=== PATIENT | male | born 1945 | race Caucasian/White ===

== ENCOUNTER 2019-06-07 12:06 | Outpatient (CLI) | payer MEDICARE, OTHER, SELFPAY ==
--- NOTE | 2019-06-07 13:26 | PFTS_ITS ---
Date of Study:06/07/2019 Date of Dictation: MECHANICS: Forced vital capacity (FVC) is normal. Forced expiratory volume in one second (FEV1) is normal. FEV1/FVC is normal. FLOW VOLUME LOOP: Normal. LUNG VOLUMES: Total lung capacity (TLC) is normal. Residual volume (RV) is normal. DIFFUSING CAPACITY FOR CARBON MONOXIDE: Normal. INTERPRETATION: The pulmonary function tests are normal. Normal lung volumes. Gas exchange (DLCO) is normal. MTDD
== END 2019-06-07 12:07 | disposition home or self-care (01) ==
LOC: RT 12:11
PROVIDERS: Family Provider Family Medicine; PCP Family Medicine; Visit Provider Family Medicine
DX: R05 Cough (principal)
CPT/HCPCS: 94010; 94726; 94729

== ENCOUNTER → 2019-12-31 14:31 | Outpatient (BNVA) | payer SELFPAY | PROVIDERS: Family Provider Family Medicine; PCP Family Medicine; Visit Provider Specialist | DX: Z11.59 Encounter for screening for other viral diseases (principal) | CPT/HCPCS: 87635 ==

== ENCOUNTER 2020-01-04 13:52 | Outpatient (CLI) | payer OTHER, SELFPAY ==
--- NOTE | 2020-01-04 14:37 | PFTS_ITS ---
Date of Study:01/04/20 Date of Dictation: MECHANICS: Forced vital capacity (FVC) is normal. Forced expiratory volume in one second (FEV1) is normal. FEV1/FVC is normal. FLOW VOLUME LOOP: Normal. LUNG VOLUMES: Not measured DIFFUSING CAPACITY FOR CARBON MONOXIDE: Not measured Methacholine challenge test: Reduction of FEV1 by 20% was not obtained with increasing concentration of the methacholine. INTERPRETATION: The spirometry is normal. The methacholine challenge test was negative. MTDD
== END 2020-01-04 13:53 | disposition home or self-care (01) ==
LOC: RT 13:53
PROVIDERS: PCP Family Medicine; Visit Provider Specialist
DX: J30.9 Allergic rhinitis, unspecified (principal)
CPT/HCPCS: 94070; J7611; J7674

== ENCOUNTER 2020-10-02 13:41 | Outpatient (CLI) | payer OTHER, SELFPAY ==
--- NOTE | 2020-10-02 15:22 | N.ONRAD NP_ITS ---
Radiation Oncology Consultation Patient Name: David Gottlieb Date of : 1945 Date of Service: 10/02/2020 Attending Physician: Trace Tejada M.D. David Gottlieb was seen in consultation this afternoon at the [facility] for consideration of prostate radiotherapy as provision for the management of prostate cancer. He initially was initially evaluated in 2019 for rectal pain. A transrectal ultrasound-guided biopsy the prostate gland performed on August 05, 2018 diagnosed an adenocarcinoma of the prostate with a [place] score of 4+3 (grade group 3) involving 25% of the left lateral base, [place] score of 3+4 involving 40% of the right lateral mid gland, and a [place] score of 3+3 involving the left medial mid gland, left medial apex, right medial mid gland, the LXTZa, and the LMPZpl with corresponding carcinoma identified in 15%, 65%, 15%, 40%, and 10%, respectively in the submitted cores (pathology report was requested and personally reviewed). His initial PSA was 3.25 ng/mL. A Prolaris Test was obtained with a score of 2.6 (indicating a 4.2% disease specific mortality at 10 years). He elected surveillance, nevertheless, on account of urinary frequency and pelvic discomfort he has reconsidered therapeutic measures. His most recent PSA obtained in July was 5.9 ng/mL. He was evaluated for prostate radiotherapy. I discussed the patient's AJCC clinical stage IIC (T1cN0) unfavorable intermediate risk prostate cancer. In accordance to NCCN Guidelines (which do not incorporate genetic testing), surgery, external beam radiotherapy with androgen deprivation therapy (6 months), or radiotherapy with brachytherapy (as per the ASCENDE-RT Trial) are treatment options. I would endorse continued active surveillance inconsequence of the Polaris test score. The patient has verbalized understanding would like to proceed as recommended. Signed by: Dr. Trace Tejada 10/02/2020 3:20:14 PM
== END 2020-10-02 13:42 | disposition home or self-care (01) ==
PROVIDERS: PCP Family Medicine; Referring Provider Internal Medicine; Visit Provider Radiology Radiation Oncology
DX: C61 Malignant neoplasm of prostate (principal); K62.89 Other specified diseases of anus and rectum; Z79.899 Other long term (current) drug therapy
CPT/HCPCS: 99205

== ENCOUNTER → 2021-03-27 08:39 | Outpatient (BNVA) | payer OTHER, SELFPAY | PROVIDERS: PCP Family Medicine; Visit Provider Urology | DX: C61 Malignant neoplasm of prostate (principal) | CPT/HCPCS: 81003 ==

== ENCOUNTER 2021-04-29 14:30 | Emergency (ER) | payer OTHER, MEDICARE, SELFPAY ==
[2021-04-29 14:37] VITALS: BP 151/73; PULSE 94; RESP 20; TEMP 36.9; O2SAT 93; BMI 27.8
--- NOTE | 2021-04-29 15:04 | ED_ITS ---
HPI - COVID General: Chief Complaint: COVID symptoms Stated Complaint: covid positive would like antibotics Time Seen by Provider: 04/29/21 14:54 Triage information: Has fever, cough or shortness of breath . Exposure to COVID + person last 14 days History of Present Illness: 76-year-old gentleman presents with a cough. States he was diagnosed with Covid on the . Denies any chest pain or shortness of breath however. Denies any lower extremity pain or swelling. Saturating well on room air in triage. COVID Results: SARS-CoV-2 RNA (RT-PCR) Not detected (NOT DETECTED) 12/31/19 14:31 12/31/19 Review of Systems Narrative: - CONSTITUTIONAL: Denies weight loss, fever and chills. - HEENT: Denies changes in vision and hearing. - RESPIRATORY: As above - CV: Denies palpitations and CP. - GI: Denies abdominal pain, nausea, vomiting and diarrhea. - : Denies dysuria and urinary frequency. - MSK: Denies myalgia and joint pain. - SKIN: Denies rash and pruritus. - NEUROLOGICAL: Denies headache, weakness, numbness and syncope. - PSYCHIATRIC: Denies suicidal ideation PFSH ED PFSH: Medical History Prostate cancer Family History Father , AT AGE 91 Dementia Cancer prostate Mother , AT AGE 89 CHF (congestive heart failure) Social History Smoking and tobacco status: former smoker Alcohol intake: never Marital status: Current occupational status: retired Current occupation: floor coverings installer History of recent travel: No Physical Exam Narrative: EXAM NARRATIVE: - GENERAL: Alert and oriented x 3. No acute distress. Well-nourished. - EYES: EOMI. Anicteric. - HENT: Atraumatic, no C-spine tenderness. Moist mucous membranes. No scleral icterus. No cervical lymphadenopathy. - LUNGS: Clear to auscultation bilaterally. No accessory muscle use. Equal lung sounds bilaterally. No respiratory distress. - CARDIOVASCULAR: Regular rate and rhythm. No murmur. No JVD. - ABDOMEN: Soft, non-tender and non-distended. Negative CVA tenderness bilaterally, no rebound or guarding, negative Rushing sign. No palpable masses. - EXTREMITIES: No edema. Non-tender. - SKIN: No rashes or lesions. Warm. - NEUROLOGIC: No meningismus or focal neurological deficits. CN II-XII grossly intact. - PSYCHIATRIC: Cooperative. Appropriate mood and affect. Course Vital Signs: Vital signs: Vital Signs Temperature 98.4 F 04/29/21 14:37 Pulse Rate 94 04/29/21 14:37 Respiratory Rate 20 H 04/29/21 14:37 Blood Pressure 151/73 04/29/21 14:37 Pulse Oximetry 93 04/29/21 14:37 MDM - COVID Medical Decision Making 76-year-old presents with cough. Has known COVID-19. Saturating well on room air. Denies any chest pain or shortness of breath. X-ray does not reveal source of consolidation. Prescription for Tessalon Perles provided. At this time I believe patient would be safe for discharge and outpatient follow-up. Return precautions provided. Plan was reviewed with the patient who expressed understanding. Questions answered. Patient will follow up with PCP. Patient discharged in stable condition. Lab Data Radiology Impressions Chest X-Ray 04/29/21 15:04 IMPRESSION: No change, lungs clear SARS-CoV-2 RNA (RT-PCR) Not detected (NOT DETECTED) 12/31/19 14:31 12/31/19 Discharge Plan Discharge Patient Disposition: Home Clinical Impression: COVID-19 Condition: Stable Prescriptions: New Tessalon Perles 100 mg capsule 100 mg PO TID PRN (Reason: cough) Qty: 10 0RF No Action omeprazole 20 mg capsule,delayed release(DR/EC) 40 mg PO BID 0RF amlodipine 10 mg tablet 10 mg PO DAILY 0RF atorvastatin 10 mg tablet 10 mg PO DAILY 0RF Ultra CoQ10 75 mg capsule 100 mg PO DAILY 0RF cholecalciferol (vitamin D3) [Vitamin D3] 50 mcg (2,000 unit) tablet 6,000 unit PO DAILY 0RF multivitamin Tablet 1 tab PO DAILY 0RF aspirin 81 mg tablet,delayed release (DR/EC) 81 mg PO DAILY 0RF Galzin 50 mg (zinc) capsule 50 mg PO DAILY 0RF B-complex with vitamin C [Super B Complex-Vitamin C] Tablet 1 tab PO DAILY 0RF docusate sodium [Dulcolax Stool Softener (dss)] 100 mg capsule 100 mg PO DAILY PRN0RF Discharge Orders: Discharge ED (Routine); Ordered 04/29/21 Ordered By: Dread Torres Referrals: Lovely Dawson MD [Primary Care Provider] - 1-3 days Patient Instructions: COVID-19 (Coronavirus Disease 2019) (ED), Opioid Safety Coding Level of Care Code ED Record Pressman for [facility]
--- NOTE | 2021-04-29 15:04 | XRR_ITS ---
PROCEDURE INFORMATION: Exam: XR Chest Exam date and time: 04/29/2021 3:04 PM Age: 76 years old Clinical indication: Cough TECHNIQUE: Imaging protocol: XR of the chest. Views: 1 view. COMPARISON: CR Chest 2 views* [id number] 09/04/2018 1:10 PM FINDINGS: Lungs: The lungs are clear. Pleural spaces: Unremarkable. No pleural effusion. No pneumothorax. Heart/Mediastinum: Unremarkable. No cardiomegaly. Bones/joints: A right total shoulder arthroplasty is intact. Incidental spurs in the thoracic spine. XR/XR chest 1V portable [id number] IMPRESSION: No change, lungs clear
[2021-04-29] MEDS: benzonatate 100 mg Capsule 200 MG PO (15:16)
== END 2021-04-29 17:45 | disposition home or self-care (01) ==
PROVIDERS: Emergency Provider Emergency Medicine; PCP Family Medicine
DX: U07.1 COVID-19 (principal); Z79.82 Long term (current) use of aspirin; Z85.46 Personal history of malignant neoplasm of prostate; Z87.891 Personal history of nicotine dependence
CPT/HCPCS: 71045; 99283

== ENCOUNTER → 2021-06-26 16:47 | Outpatient (BNVA) | payer OTHER, SELFPAY | PROVIDERS: PCP Family Medicine; Visit Provider Urology | DX: C61 Malignant neoplasm of prostate (principal) | CPT/HCPCS: 81003; 84153 ==

== ENCOUNTER 2021-10-23 15:02 | Outpatient (CLI) | payer OTHER, SELFPAY ==
[2021-10-23 15:57] LABS: Prostate Specific AG Urology 7.23 ng/mL (0-4)
== END 2021-10-23 15:03 | disposition home or self-care (01) ==
PROVIDERS: PCP Family Medicine; Visit Provider Urology
DX: R97.20 Elevated prostate specific antigen [PSA] (principal); C61 Malignant neoplasm of prostate
CPT/HCPCS: 36415; 84153; 99214

== ENCOUNTER → 2022-02-26 13:14 | Outpatient (BNVA) | payer OTHER, SELFPAY | PROVIDERS: Visit Provider Urology | DX: C61 Malignant neoplasm of prostate (principal) | CPT/HCPCS: 99213 ==

== ENCOUNTER 2023-05-05 07:30 | Emergency (ER) | payer OTHER, SELFPAY ==
[2023-05-05] VITALS (8 sets, daily range): BP systolic 105–154; BP diastolic 66–76; PULSE 75–89; RESP 16; TEMP 36.7; O2SAT 92–97; BMI 27.3
--- NOTE | 2023-05-05 07:35 | ECG_ITS ---
[facility] Test Date: 2023-05-05 Pat Name: David Gottlieb Department: Room: Gender: Male Sales Account Director: : 1945 Requested By: Go Neely Order Number: [id number] Alan MD: Soham Doshi M.D. Measurements Intervals [place] Rate: 74 P: 51 PA: 165 QRS: -35 QRSD: 143 T: 15 QT: 379 QTc: 423 Interpretive Statements SINUS RHYTHM LEFT AXIS DEVIATION [QRS AXIS < -30] RIGHT BUNDLE BRANCH BLOCK [120+ ms QRS DURATION, UPRIGHT V1, 40+ ms S IN I/aVL/V4/V5/V6] Compared to ECG 01/05/2018 08:51:10 Sinus bradycardia no longer present Electronically Signed On 05-05-2023 14:18:24 PHOTOGRAPHIC SPECIALIST by Soham Doshi M.D. [email or web address]
--- NOTE | 2023-05-05 07:35 | XR_ITS ---
WS: [id number] PORTABLE CHEST HISTORY: dyspnea/cough COMPARISON: 04/29/2021 Lungs are clear and well expanded. No pleural effusion or pneumothorax. Cardiac size: Normal. Mediastinum/Aorta: Mild atherosclerosis aorta. Prior RIGHT humeral head prosthesis. IMPRESSION: Stable chest, no acute pathology.
--- NOTE | 2023-05-05 07:37 | ED_ITS ---
HPI - Abdominal Pain 2 General: Chief Complaint: Abdominal Pain Stated Complaint: abd pain Time Seen by Provider: 05/05/23 07:34 Source: patient Mode of arrival: ambulatory History of Present Illness: 78-year-old male presents emergency room with complaints of abdominal pain fullness. He has had difficulty with urination and with bowel movements for the last couple of days. He recently had endoscopy and they used propofol he evidently has had problems with urinary retention constipation in the past with propofol as well no fever sweats chills no vomiting MD elicited complaint: abdominal pain Onset (ago): minute(s) Quality: cramping Exacerbating factors: nothing Relieving factors: nothing Associated Symptoms: Reports GI cramping; Denies anorexia, belching, bloating, change in bowel habits, change in stool character, chills, coffee ground emesis, constipation, diarrhea, dyspepsia, dysuria, excessive flatus, fever(s), heartburn, hematochezia, hematuria, hematemesis, fecal incontinence, loose stools, melena, nausea, poor appetite, syncope and vomiting Review of Systems 2 Const: Denies: fever(s) or chills Card: Denies: chest pain or syncope Resp: Denies: dyspnea GI: Reports: GI cramping; Denies: abdominal pain, nausea, vomiting, hematemesis, coffee ground emesis, heartburn, diarrhea, constipation, bloating, belching, excessive flatus, fecal incontinence, change in bowel habits, change in stool character, hematochezia or melena : Denies: dysuria, urinary frequency, urinary urgency or hematuria Musc: Denies: neck pain or back pain Skin/Breast: Denies: rash PFSH ED 2 PFSH: Medical History Chronic lymphoid leukemia Hyperlipemia CAD (coronary artery disease) HTN (hypertension) Prostate cancer Surgical History History of placement of stent in LAD coronary artery Family History Father , AT AGE 91 Dementia Cancer prostate Mother , AT AGE 89 CHF (congestive heart failure) Social History (Reviewed 05/05/23 @ 07:37 by JEY Metzger Smoking and tobacco/nicotine status: former use of tobacco/nicotine Alcohol intake: never Marital status: Current occupational status: retired Current occupation: returned item clerk Physical Exam 2 Const: COMMON NORMALS: no acute distress GENERAL APPEARANCE: cooperative and comfortable ORIENTATION/CONSCIOUSNESS: Yes awake, Yes oriented to person, Yes oriented to place and Yes oriented to time HENMT: COMMON NORMALS: normocephalic, atraumatic and hearing grossly normal bilaterally HEAD & SCALP: normocephalic and atraumatic Resp: COMMON NORMALS: normal respiratory effort, No retractions, No use of accessory muscles and clear to auscultation bilaterally AUSCULTATION: clear to auscultation bilaterally Cardio: COMMON NORMALS: regular rate, regular rhythm and No murmurs present (Cardio) RATE: regular rate RHYTHM: regular rhythm GI: COMMON NORMALS: Soft to palpation and No hepatosplenomegaly present A USCULTATION: Yes normoactive bowel sounds PALPATION: Yes Soft to palpation, No Tenderness to palpation present (GI), No Guarding due to palpation present (GI) and Yes No hepatosplenomegaly present Extremity: COMMON NORMALS: normal to inspection, capillary refill normal, no clubbing, cyanosis or edema, no calf tenderness and no pedal edema Neuro: SENSORIUM/ORIENTATION: Yes oriented to person, Yes oriented to place and Yes oriented to time Skin: COMMON NORMALS: no rashes or lesions noted GENERAL SKIN EXAM: no rashes or lesions noted Course 2 Vital Signs: Vital signs: Vital Signs Temperature 98.0 F 05/05/23 07:32 Pulse Rate 85 05/05/23 11:58 Respiratory Rate 16 05/05/23 07:32 Blood Pressure 105/75 05/05/23 11:58 Pulse Oximetry 95 05/05/23 11:58 Oxygen Delivery Me thod Room Air 05/05/23 11:03 MDM - Abdominal Pain Medical Decision Making Urinary retention with constipation. Over 700 mL out after placement of Rodriguez. We discussed different options for treatment of his constipation to the operative bed and the patient prefers to go home and use laxatives at home recommend mag citrate 150 mL and repeat as needed until desired results achieved. Additionally started on Flomax and follow-up with urology he sees urologist for his prostate CA. Imaging report reviewed. Lactic acid was normal patient has a fair amount of cramping. Significant relief of pain since a Rodriguez was placed. Lactate is normal. I do not believe he has any bowel ischemia he has no significant abdominal and anginal-like symptoms at this point. Discharge him home with the mag citrate to use as needed. Medical Records I reviewed the patient's medical records. Lab Data I reviewed the patient's lab results. 05/05/23 07:45 05/05/23 07:45 Labs/Radiology: Laboratory Results WBC 12.44 10^3/uL (3.29-11.43) H 05/05/23 07:45 RBC 4.75 10^6/uL (3.85-5.65) 05/05/23 07:45 Hgb 13.50 g/dL (11.27-16.99) 05/05/23 07:45 Hct 41.8 % (37-53) 05/05/23 07:45 MCV 88.0 fl (82-101) 05/05/23 07:45 MCH 28.4 pg (27-33) 05/05/23 07:45 MCHC 32.3 g/dL (30-55) 05/05/23 07:45 RDW 13.2 % (12.1-15.1) 05/05/23 07:45 Plt Count 107 10^3/cmm (157-399) L 05/05/23 07:45 MPV 9.5 fL (7.4-10.4) 05/05/23 07:45 Neut % (Auto) 52.0 % 05/05/23 07:45 Lymph % (Auto) 43.2 % 05/05/23 07:45 [place] % (Auto) 3.9 % 05/05/23 07:45 Eos % (Auto) 0.4 % 05/05/23 07:45 Baso % (Auto) 0.3 % 05/05/23 07:45 Neut # (Auto) 6.46 10^3/uL (1.8-7.7) 05/05/23 07:45 Lymph # (Auto) 5.4 10^3/uL (0.8-4.8) H 05/05/23 07:45 [place] # (Auto) 0.5 10^3/uL (0.2-0.9) 05/05/23 07:45 Eos # (Auto) 0.1 10^3/uL (0.0-0.8) 05/05/23 07:45 Baso # (Auto) 0.0 10^3/uL (0.0-0.1) 05/05/23 07:45 Nucleated RBC % (auto) 0 % 05/05/23 07:45 Nucleated RBCs # 0.0 /100WBC 05/05/23 07:45 Sodium 134 mmol/L (136-145) L 05/05/23 07:45 Potassium 4.3 mmol/L (3.5-5.1) 05/05/23 07:45 Chloride 100 mmol/L (98-107) 05/05/23 07:45 Carbon Dioxide 24 mmol/L (22-29) 05/05/23 07:45 Anion Gap 14.3 (5-19) 05/05/23 07:45 BUN 13 mg/dL (8-23) 05/05/23 07:45 Creatinine 0.8 mg/dL (0.7-1.2) 05/05/23 07:45 GFR Calculation Not Reportable 05/05/23 07:45 Glucose 137 mg/dL (65-115) H 05/05/23 07:45 Calculated Osmolality 280 mOsm/kg (285-295) L 05/05/23 07:45 Lactic Acid 1.0 mmol/L (0.5-2.2) 05/05/23 07:45 Calcium 8.8 mg/dL (8.5-10.5) 05/05/23 07:45 Total Bilirubin 1.0 mg/dL (0.15-1.2) 05/05/23 07:45 AST 24 U/L (0-40) 05/05/23 07:45 ALT 18 U/L (0-41) 05/05/23 07:45 Alkaline Phosphatase 70 U/L (40-130) 05/05/23 07:45 Total Protein 6.9 g/dL (6.6-8.7) 05/05/23 07:45 Albumin 4.1 g/dL (3.5-5.2) 05/05/23 07:45 Globulin 2.8 g/dL (1.3-4.6) 05/05/23 07:45 Lipase 29 U/L (13-60) 05/05/23 07:45 Urine Color Yellow (Yellow) 05/05/23 09:30 Urine Appearance Clear (CLEAR) 05/05/23 09:30 Urine pH 6.5 (5-7) 05/05/23 09:30 Ur Specific [place] 1.010 (1.005-1.030) 05/05/23 09:30 Urine Protein Neg (Negative) 05/05/23 09:30 Urine Glucose (UA) Norm (Normal) 05/05/23 09:30 Urine Ketones Negative (Negative) 05/05/23 09:30 Urine Blood Neg (Negative) 05/05/23 09:30 Urine Nitrate Negative (Negative) 05/05/23 09:30 Urine Bilirubin Neg (Negative) 05/05/23 09:30 Urine Urobilinogen Neg mg/dL (Negative) 05/05/23 09:30 Ur Leukocyte Esterase Negative (Negative) 05/05/23 09:30 All radiology interpretation(s) finalized by discharge Discharge Plan Discharge Patient Disposition: Home Clinical Impression: Constipation, Acute urinary retention Condition: Stable Prescriptions: New magnesium citrate Solution 150 ml PO BID PRN (Reason: constipation) Qty: 296 0RF Flomax 0.4 mg capsule 0.4 mg PO DAILY Qty: 30 0RF No Action amlodipine 10 mg tablet 10 mg PO QPM Ultra CoQ10 75 mg capsule 100 mg PO QPM multivitamin Tablet 1 tab PO QPM aspirin 81 mg tablet,delayed release (DR/EC) 81 mg PO DAILY atorvastatin 40 mg tablet 40 mg PO QPM Vitamin B Complex-C Tablet 1 tab PO QPM Discharge Orders: Discharge ED (Routine); Ordered 05/05/23 Ordered By: Go Allen Discharge Diet: Usual diet Discharge Activity: Increase activity as tolerated Patient Instructions: Opioid Safety, Pain Management Activity Restrictions/Additional Instructions: Thank you for choosing [facility] for your healthcare needs today. Please realize this is an emergency room and that we are providing you with a medical screening exam and this may not be complete and all inclusive of all the testing and or work up that you may need to determine your ailment or severity of your illness. It is very important that you follow up as instructed or that you return to the Emergency Department should you have concerns or if your condition changes or worsens in any way. You were seen today with abdominal pain. Bladder scan showed urinary retention a Rodriguez was placed and over 700 mL was drained from your bladder. Additionally you do have some constipation. Recommend that you leave the Rodriguez in place we will start you on Flomax 1 tablet daily. Use magnesium citrate 150 mL every 8- 12 hours until adequate results achieved. Case management make arranges for a Follow-up appointment with urology regarding urinary retention. It is most likely due to the medications given for your procedure. Coding Level of Care Code ED Cement Loader for [facility] [facility]
[2023-05-05 08:03] LABS: Basophils % 0.3 %; Eosinophils # 0.1 10^3/uL (0.0-0.8); Eosinophils % 0.4 %; Hematocrit 41.8 % (37-53); Lymphocytes # 5.4 10^3/uL (0.8-4.8); Lymphocytes % 43.2 %; Mean Corpuscular HGB Conc 32.3 g/dL (30-55); Mean Corpuscular Hemoglobin 28.4 pg (27-33); Mean Platelet Volume 9.5 fL (7.4-10.4); Monocytes # 0.5 10^3/uL (0.2-0.9); Monocytes % 3.9 %; Neutrophils # 6.46 10^3/uL (1.8-7.7); Nucleated Red Blood Cells % 0 %; Platelet Count 107 10^3/cmm (157-399); Red Blood Count 4.75 10^6/uL (3.85-5.65); Red Cell Distribution Width 13.2 % (12.1-15.1); White Blood Count 12.44 10^3/uL (3.29-11.43)
[2023-05-05 08:11] LABS: Alanine Aminotransferase 18 U/L (0-41); Albumin Level 4.1 g/dL (3.5-5.2); Alkaline Phosphatase 70 U/L (40-130); Anion Gap 14.3 (5-19); Aspartate Amino Transferase 24 U/L (0-40); Blood Urea Nitrogen 13 mg/dL (8-23); Calcium 8.8 mg/dL (8.5-10.5); Carbon Dioxide 24 mmol/L (22-29); Chloride 100 mmol/L (98-107); Creatinine Clr Calc Pharmacy 81.8876; Globulin 2.8 g/dL (1.3-4.6); Glucose 137 mg/dL (65-115); Lipase 29 U/L (13-60); Osmolality Calculated 280 mOsm/kg (285-295); Potassium 4.3 mmol/L (3.5-5.1); Sodium 134 mmol/L (136-145); Total Protein 6.9 g/dL (6.6-8.7)
--- NOTE | 2023-05-05 08:22 | PC.PHAR ---
PT STATES HE STOPPED ALL OTC MEDS FOR 1 WEEK FOR A PROCEDURE.
--- NOTE | 2023-05-05 09:23 | CT_ITS ---
WS: [id number] CT ABDOMEN AND PELVIS WITH CONTRAST HISTORY: abd pain, lower abdominal pain with constipation for days. TECHNIQUE: Imaging performed of the abdomen and pelvis with IV contrast. Single phase imaging of the abdomen. Coronal and sagittal reformats are submitted. All CT scans at [facility] use at [address] one of these dose optimization techniques: automated exposure control; mA and/or kV adjustment per patient size (includes targeted exams where dose is matched to clinical indication); or iterative re construction. IV CONTRAST: Omnipaque 350; 100 mL IV. Oral contrast: No DLP: 580.61 mGy.cm COMPARISON: None available. Lower thorax: 3 mm nodule LEFT lower lobe no change since 2018. No pneumonia. Mild dependent changes at the lung bases. Heart is normal size. Small hiatal hernia. Liver/biliary system: Normal size with no intrahepatic dilatation. Gallbladder: Normal. No gallstones or wall thickening. No pericholecystic fluid. Pancreas: Normal size pancreas and pancreatic duct. No adjacent inflammation. Spleen: Normal size spleen. No mass or infarct. Adrenal glands: Normal. Right kidney: Too small to characterize hypodensities. Nonobstructing calcifications. Dominant cyst l ower pole 3.3 x 3.2 cm. No renal obstruction. Left kidney: Too small to characterize hypodensities. Nonobstructing calcifications in the renal pelv is. Small cyst. No obstruction. Aorta: Moderate atherosclerosis with no aneurysm. Lymphadenopathy: None. Free fluid: None. GI tract: Nondistended stomach. There is mild fluid and air distention of the small bowel. Increasing air distention in stool throughout the colon. Towards the rectum there is marked dilatation of the r ectum measuring up to 6.8 x 7.4 cm. No mass noted at the rectum but this area can be further evaluate d by digital examination. There is a small amount of air in the wall of the sigmoid colon. This can b e seen with COPD or early ischemic changes of pneumatosis. No free air. Abdominal wall: Unremarkable abdominal wall. No hernia. Pelvis: Markedly distended urinary bladder. There is a Rodriguez catheter present but the bladder is stil l distended and contains a small amount of iatrogenic air. Bones: Unremarkable. IMPRESSION: 1. Marked diffuse constipation. Significant rectal wall distention with retained fecal material. Rec toño measures 6.8 x 7.4 cm. 2. There is marked diffuse constipation. There is a small amount of air within the sigmoid wall. Thi s can be a benign or more acute etiologies. This can be related to chronic lung disease or pneumatosi s elated to ischemia. There is no free air and the wall is not thickened or demonstrate abnormal enha ncement.. 3. Bilateral renal cysts.
[2023-05-05 09:43] LABS: Add Urine Microscopic? NO; Charge for UA Resulting for Rev
[2023-05-05 09:46] LABS: Bilirubin Urine Neg (Negative); Blood Urine Neg (Negative); Glucose Urine UA Norm (Normal); Ketones Urine Negative (Negative); Leukocyte Esterase Urine Negative (Negative); Nitrate Urine Negative (Negative); Protein Urine Neg (Negative); Urine Appearance Clear (CLEAR); Urine Color Yellow (Yellow); Urobilinogen Urine Neg (Negative); pH Urine 6.5 (5-7)
[2023-05-05] MEDS: iohexol 350 mg/mL 500 mL Btl (per mL) IV (10:04)
== END 2023-05-05 12:03 | disposition home or self-care (01) ==
PROVIDERS: Emergency Provider Family Medicine
DX: K59.00 Constipation, unspecified (principal); R33.9 Retention of urine, unspecified; Z79.82 Long term (current) use of aspirin; Z87.891 Personal history of nicotine dependence; Z85.6 Personal history of leukemia; E78.5 Hyperlipidemia, unspecified; I25.10 Atherosclerotic heart disease of native coronary artery without angina pectoris; I10 Essential (primary) hypertension; Z85.46 Personal history of malignant neoplasm of prostate
CPT/HCPCS: 36415; 51702; 51798; 71045; 74177; 80053; 81003; 83605; 83690; 85025; 93005; 99285; Q9967

== ENCOUNTER 2024-05-05 14:41 | Outpatient (CLI) | payer MEDICARE, BC, SELFPAY ==
--- NOTE | 2024-05-05 14:50 | XR_ITS ---
WS: [id number] XR chest 2V* [id number] REASON FOR EXAM: cough X 3 months; exam with L crackles FINDINGS: The chest appears unchanged compared to 05/05/2023. Moderate tortuosity and ectasia thoracic aorta. Normal heart size. Coronary artery stent. Calcified granulomatous disease bilaterally. Mild flattening of the hemidiaphragms. No acute pulmonary parenchymal or pleural disease is identified. Mild degenerative spondylosis of the thoracic spine. Total reversed right shoulder arthroplasty. XR/XR chest 2V* [id number] IMPRESSION: Stable chest without definite acute abnormality identified.
== END 2024-05-05 14:42 | disposition home or self-care (01) ==
LOC: RAD 14:46
PROVIDERS: PCP Family Medicine; Visit Provider Family Medicine
DX: R05.3 Chronic cough (principal); I77.810 Thoracic aortic ectasia; Z96.89 Presence of other specified functional implants; D71 Functional disorders of polymorphonuclear neutrophils; R93.89 Abnormal findings on diagnostic imaging of other specified body structures; M47.894 Other spondylosis, thoracic region; Z98.890 Other specified postprocedural states
CPT/HCPCS: 71046

== ENCOUNTER 2024-10-21 12:48 | Outpatient (CLI) | payer MEDICARE, SELFPAY ==
--- NOTE | 2024-10-21 13:00 | MR_ITS ---
WS: [id number] MRI LEFT SHOULDER HISTORY: left shoulder rotator cuff tear; left shoulder pain COMPARISON: None available. TECHNIQUE: Multiplanar sequences of the shoulder joint are submitted. Moderate AC joint arthritis. Small osteophytes in the distal clavicle and acromion. Narrowing of the AC joint. Very small amount of fluid in the subdeltoid bursa. There is a very small osteophyte encroaching upon the superior articular surface of the supraspinatus tendon. No os acromion. Normal biceps tendon. Moderate narrowing of the glenohumeral joint. Small cysts in the glenoid. There is a small amount of edema in the posterior humeral head. No rotator cuff muscle atrophy or edema. There is a small insertion site tear involving the distal supraspinatus tendon. Small amount of fluid extends along the tendon sheath. There is no retraction of the tendon. There is an additional focal tear in the tendon extending to the articular surface of the supraspinatus. Subscapularis tendon is intact. No infraspinatus tendon tear. Teres minor intact. Coracohumeral ligament is normal. Increased T2 signal at the base of the superior labrum. This is most likely normal variant, deep labral recess. There is additional increased T2 signal in the more anterior superior labrum which is suspicious for a very short segment tear. MR/MR shoulder LT wo con* [id number] IMPRESSION: 1. Insertion site tear of the distal supraspinatus tendon. There is an additio nal 4 mm tear in the distal tendon involving the articular surface. No full-thi ckness tendon tear. 2. Moderate AC joint arthropathy. 3. Normal biceps tendon. 4. Abnormal signal in the anterosuperior labrum. There is a normal variant dhara p labral sulcus. Additional short segment tear involving the anterior superior labrum.
== END 2024-10-21 12:49 | disposition home or self-care (01) ==
LOC: RAD 12:48
PROVIDERS: PCP Family Medicine; Visit Provider Family Medicine
DX: M75.112 Incomplete rotator cuff tear or rupture of left shoulder, not specified as traumatic (principal); M25.312 Other instability, left shoulder
CPT/HCPCS: 73221

== ENCOUNTER → 2024-11-04 08:37 | Outpatient (BNVA) | payer MEDICARE, SELFPAY | PROVIDERS: PCP Family Medicine; Visit Provider Orthopaedic Surgery | DX: M75.102 Unspecified rotator cuff tear or rupture of left shoulder, not specified as traumatic (principal); S46.812A Strain of other muscles, fascia and tendons at shoulder and upper arm level, left arm, initial encounter; X58.XXXA Exposure to other specified factors, initial encounter | CPT/HCPCS: 99204 ==